=== PATIENT | female | born 1995 | race African-American/Black ===

== ENCOUNTER 2019-10-25 22:14 | Emergency (ER) | payer SELFPAY ==
[~2019-10-25] VITALS: Ht 160 cm; Wt 68.0 kg
[~2019-10-25 22:14] MED LIST: DOCU-109 PO; FERR325T14 PO; IBUP-1060 PO; OXYC1TAB15 PO; PNV1TABL25 PO
--- NOTE | 2019-10-25 22:42 | PHYS DOC ---
Past Medical History Past Medical History: Asthma Additional Past Medical Histor: ADD, ENVIRONMENTAL ALLERGIES Past Surgical History: Alcohol Use: Rarely Drug Use: None Adult General Chief Complaint Chief Complaint: MULTIPLE COMPLAINTS HPI HPI 24-year-old female presents to the emergency Department complaints of numbness all over her body ongoing times at least 4-5 days. Patient was previously admitted to a [facility] had some concern for what she describes as hypothermia patient as well states she's had a history of PCP and ecstasy. Eyes any headache, visual change, chest pain, shortness breath. She does have underlying history of asthma states when she gets an asthma attack her coughing she does have some vomiting that happens secondary to the cough. Nothing makes her symptoms worse, nothing makes her symptoms better. Review of Systems Review of Systems Constitutional: Denies fever or chills [] Respiratory: Denies cough or shortness of breath [] Cardiovascular: No additional information not addressed in HPI [] GI: Denies abdominal pain, nausea, vomiting, bloody stools or diarrhea [] : Denies dysuria or hematuria [] Musculoskeletal: Denies back pain or joint pain [] Integument: Denies rash or skin lesions [] Neurologic: Denies headache, focal weakness, numbness/tingling appreciated all over her body [] All other systems were reviewed and found to be within normal limits, except as documented in this note. Current Medications Current Medications Current Medications Medications (Trade) Dose Ordered Sig/[place] Start Time Stop Time Status Last Admin Dose Admin Magnesium Sulfate 50 ml @ 25 mls/hr 1X ONCE 10/25/19 23:30 10/26/19 01:29 UNV Allergies Allergies Allergies Coded Allergies Type Severity Reaction Last Updated Verified Penicillins Allergy Severe Swelling 07/18/16 Yes [place] And Derivatives Allergy Intermediate Swelling 12/03/15 Yes apple Allergy Intermediate SWELLING 12/03/15 Yes banana Allergy Intermediate Swelling 12/03/15 Yes [place] flavor Allergy Intermediate Swelling 12/03/15 Yes grape Allergy Intermediate Swelling 12/03/15 Yes grapefruit Allergy Intermediate Swelling 12/03/15 Yes orange Allergy Intermediate Swelling 12/03/15 Yes peach Allergy Intermediate Swelling 12/03/15 Yes peanut Allergy Intermediate swelling 12/02/15 No shellfish derived Allergy Intermediate swelling 12/02/15 No strawberry Allergy Intermediate Swelling 12/03/15 Yes Physical Exam Physical Exam Constitutional: Well developed, well nourished, no acute distress, non-toxic appearance. [] HENT: Normocephalic, atraumatic, bilateral external ears normal, oropharynx moist, no oral exudates, nose normal. [] Eyes: PERRLA, EOMI, conjunctiva normal, no discharge. [] Cardiovascular:Heart rate regular rhythm, no murmur [] Lungs & Thorax: Bilateral breath sounds clear to auscultation [] Abdomen: Bowel sounds normal, soft, no tenderness, no masses, no pulsatile masses. [] Skin: Warm, dry, no erythema, no rash. [] Extremities: No tenderness, no edema. [] Neurologic: Alert and oriented X 3, no focal deficits noted. [] Psychologic: Affect normal, judgement normal, mood normal. [] Current Patient Data Vital Signs Vital Signs Date Time Temp Pulse Resp B/P (MAP) Pulse Ox O2 Delivery O2 Flow Rate FiO2 10/25/19 22:32 98.2 96 16 138/83 (101) 97 Room Air 98.2 Lab Values Laboratory Tests Test 10/25/19 22:47 10/25/19 22:53 Urine Collection Type Unknown Urine Color Yellow Urine Clarity Cloudy Urine pH 5.5 Urine Specific [place] 1.015 Urine Protein Negative mg/dL (NEG-TRACE) Urine Glucose (UA) Negative mg/dL (NEG) Urine Ketones (Stick) Negative mg/dL (NEG) Urine Blood Negative (NEG) Urine Nitrite Negative (NEG) Urine Bilirubin Negative (NEG) Urine Urobilinogen Dipstick 0.2 mg/dL (0.2 mg/dL) Urine Leukocyte Esterase Negative (NEG) Urine RBC 0 /HPF (0-2) Urine WBC Occ /HPF (0-4) Urine Squamous Epithelial Cells Mod /LPF Urine Bacteria Few /HPF (0-FEW) Urine Mucus Mod /LPF White Blood Count 10.7 x10^3/uL (4.0-11.0) Red Blood Count 4.87 x10^6/uL (3.50-5.40) Hemoglobin 14.6 g/dL (12.0-15.5) Hematocrit 43.7 % (36.0-47.0) Mean Corpuscular Volume 90 fL (79-100) Mean Corpuscular Hemoglobin 30 pg (25-35) Mean Corpuscular Hemoglobin Concent 33 g/dL (31-37) Red Cell Distribution Width 13.5 % (11.5-14.5) Platelet Count 389 x10^3/uL (140-400) Neutrophils (%) (Auto) 64 % (31-73) Lymphocytes (%) (Auto) 27 % (24-48) Monocytes (%) (Auto) 9 % (0-9) Eosinophils (%) (Auto) 1 % (0-3) Basophils (%) (Auto) 0 % (0-3) Neutrophils # (Auto) 6.8 x10^3/uL (1.8-7.7) Lymphocytes # (Auto) 2.9 x10^3/uL (1.0-4.8) Monocytes # (Auto) 0.9 x10^3/uL (0.0-1.1) Eosinophils # (Auto) 0.1 x10^3/uL (0.0-0.7) Basophils # (Auto) 0.0 x10^3/uL (0.0-0.2) Sodium Level 140 mmol/L (136-145) Potassium Level 3.6 mmol/L (3.5-5.1) Chloride Level 103 mmol/L (98-107) Carbon Dioxide Level 30 mmol/L (21-32) Anion Gap 7 (6-14) Blood Urea Nitrogen 7 mg/dL (7-20) Creatinine 1.0 mg/dL (0.6-1.0) Estimated GFR (Cockcroft-Gault) 81.7 BUN/Creatinine Ratio 7 (6-20) Glucose Level 85 mg/dL (70-99) Calcium Level 8.8 mg/dL (8.5-10.1) Magnesium Level 1.7 mg/dL (1.8-2.4) L Total Bilirubin 0.2 mg/dL (0.2-1.0) Aspartate Amino Transferase (AST) 18 U/L (15-37) Alanine Aminotransferase (ALT) 20 U/L (14-59) Alkaline Phosphatase 64 U/L (46-116) Total Protein 7.1 g/dL (6.4-8.2) Albumin 3.5 g/dL (3.4-5.0) Albumin/Globulin Ratio 1.0 (1.0-1.7) Laboratory Tests 10/25/19 22:53 Laboratory Tests 10/25/19 22:53 EKG EKG [] Radiology/Procedures Radiology/Procedures [] Course & Med Decision Making Course & Med Decision Making Pertinent Labs and Imaging studies reviewed. (See chart for details) []24-year-old female presents to the emergency Department complaints of numbness all over her body ongoing times at least 4-5 days. Patient was previously admitted to a [facility] had some concern for what she describes as hypothermia patient as well states she's had a history of PCP and ecstasy. Eyes any headache, visual change, chest pain, shortness breath. She does have underlying history of asthma states when she gets an asthma attack her coughing she does have some vomiting that happens secondary to the cough. Nothing makes her symptoms worse, nothing makes her symptoms better. Laboratory values reviewed, evidence of hypomagnesemia, 1.7 UAD unremarkable Recommend dc home follow up with PCP If further concerns for STD recommend following up with health department Dragon Disclaimer Dragon Disclaimer This electronic medical record was generated, in whole or in part, using a voice recognition dictation system. Departure Departure Impression: Primary Impression: Hypomagnesemia Additional Impression: Paresthesia Disposition: 01 HOME, SELF-CARE Condition: STABLE Referrals: NO PCP (PCP) Patient Instructions: Hypomagnesemia, Paresthesia, [id number] Additional Instructions: Recommend follow up with PCP 3 - 5 days Return to the ER with worsening symptoms, intractable pain, fever, altered mental status Tylenol/Motrin as needed for pain Magnesium replaced in ER - likely source of paresthesia Urinalysis - no evidence of acute infection or trichomonas Problem Qualifiers SHANTE LIEBERMAN MD Oct 25, 2019 22:42
[2019-10-25 23:06] LABS: BASO % 0 % (0-3); EOS # 0.1 x10^3/uL (0.0-0.7); EOS % 1 % (0-3); HEMATOCRIT 43.7 % (36.0-47.0); HEMOGLOBIN 14.6 g/dL (12.0-15.5); LYMPH # 2.9 x10^3/uL (1.0-4.8); LYMPH % 27 % (24-48); MEAN CORPUSCULAR HEMOGLOBIN 30 pg (25-35); MEAN CORPUSCULAR HGB CONC 33 g/dL (31-37); MEAN CORPUSCULAR VOLUME 90 fL (79-100); MONO # 0.9 x10^3/uL (0.0-1.1); MONO % 9 % (0-9); NEUT # 6.8 x10^3/uL (1.8-7.7); NEUT % 64 % (31-73); PLATELET COUNT 389 x10^3/uL (140-400); RED BLOOD COUNT 4.87 x10^6/uL (3.50-5.40); RED CELL DISTRIBUTION WIDTH 13.5 % (11.5-14.5); WHITE BLOOD COUNT 10.7 x10^3/uL (4.0-11.0)
[2019-10-25 23:06] LABS: BILIRUBIN,URINE NEGATIVE (NEG); CLARITY,URINE CLOUDY; COLOR,URINE YELLOW; NITRITE,URINE NEGATIVE (NEG); PH,URINE 5.5; PROTEIN,URINE NEGATIVE (NEG-TRACE); UROBILINOGEN,URINE 0.2 mg/dL (0.2 mg/dL)
[2019-10-25 23:11] LABS: BACTERIA,URINE FEW /HPF (0-FEW); RBC,URINE 0 /HPF (0-2); WBC,URINE OCC /HPF (0-4)
[2019-10-25 23:12] LABS: SQUAMOUS EPITHELIAL CELL,UR MOD /LPF
[2019-10-25 23:16] LABS: CALCIUM 8.8 mg/dL (8.5-10.1); GFR 81.7; POTASSIUM 3.6 mmol/L (3.5-5.1)
[2019-10-25 23:19] LABS: ALBUMIN 3.5 g/dL (3.4-5.0); MAGNESIUM 1.7 mg/dL (1.8-2.4); TOTAL BILIRUBIN 0.2 mg/dL (0.2-1.0); TOTAL PROTEIN 7.1 g/dL (6.4-8.2)
[2019-10-25] MEDS ORDERED: MAGNESIUM SULFATE 2GM 50 ML IV ONE (23:30)
[2019-10-26 01:28] VITALS: BP 122/77
--- NOTE | 2019-10-27 08:55 | EKG ---
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
== END 2019-10-26 01:37 | disposition home or self-care (01) ==
LOC: ER 22:14
DX: E83.42 Hypomagnesemia (principal); R20.2 Paresthesia of skin; J45.909 Unspecified asthma, uncomplicated; Z98.890 Other specified postprocedural states; F98.8 Other specified behavioral and emotional disorders with onset usually occurring in childhood and adolescence; Z88.0 Allergy status to penicillin; Z91.013 Allergy to seafood; Z91.018 Allergy to other foods
CPT/HCPCS: 36415; 80053; 81001; 83735; 85025; 96365; 99284; J3475; 93005